=== PATIENT | female | born 1980 ===

== ENCOUNTER 2017-04-15 09:59 | Emergency (ER) | payer OTHER ==
[2017-04-15 10:06] VITALS: BP 117/59; PULSE 69; RESP 19; TEMP 98.2; O2SAT 99
--- NOTE | 2017-04-15 10:37 | ED PDOC ---
HPI: Female Pain Time Seen by Provider: 04/15/17 10:02 Chief Complaint (Provider): Vaginal Bleeding History Per: Patient History/Exam Limitations: no limitations Onset/Duration Of Symptoms: Days Current Symptoms Are (Timing): Still Present Severity: Mild Additional Complaint(s): Patient is a 36 year old female, who is currently with her second child , presents to the ED complaining of vaginal bleeding and discharge since yesterday. Patient reports 2 and para 1. Patient is 7 weeks and reports brown spotting yesterday and bright red vaginal bleeding today. Patient called [facility] and was advised to visit the ER. Patient has an appointment with [facility] next week. PMD: none Abnormal Vaginal Bleeding: Yes Past Medical History Reviewed: Historical Data, Nursing Documentation, Vital Signs Vital Signs: Last Vital Signs Temp 98.2 F 04/15/17 10:06 Pulse 69 04/15/17 10:06 Resp 19 04/15/17 10:06 BP 117/59 L 04/15/17 10:06 Pulse Ox 99 04/15/17 10:06 - Medical History PMH: No Chronic Diseases - Family History Family History: States: No Known Family Hx - Allergies Allergies/Adverse Reactions: Allergies Allergy/AdvReac Type Severity Reaction Status Date / Time No Known Allergies Allergy Verified 04/15/17 10:25 Review of Systems ROS Statement: Except As Marked, All Systems Reviewed And Found Negative Constitutional: Negative for: Fever Genitourinary Female: Positive for: Vaginal Discharge, Vaginal Bleeding Physical Exam - Reviewed Nursing Documentation Reviewed: Yes Vital Signs Reviewed: Yes - Physical Exam Appears: Positive for: Well, Non-toxic, No Acute Distress Head Exam: Positive for: ATRAUMATIC, NORMAL INSPECTION, NORMOCEPHALIC Skin: Positive for: Normal Color, Warm, DRY Eye Exam: Positive for: EOMI, Normal appearance, PERRL Neck: Positive for: Normal, Painless ROM Cardiovascular/Chest: Positive for: Regular Rate, Rhythm. Negative for: Gallop , Murmur Respiratory: Positive for: Normal Breath Sounds. Negative for: Accessory Muscle Use, Rhonchi, Respiratory Distress Gastrointestinal/Abdominal: Positive for: Normal Exam, Soft. Negative for: Tenderness Extremity: Positive for: Normal ROM Neurologic/Psych: Positive for: Alert, Oriented - Laboratory Results Result Diagrams: 04/15/17 10:55 04/15/17 10:55 - ECG O2 Sat by Pulse Oximetry: 99 (RA) Pulse Ox Interpretation: Normal Medical Decision Making Medical Decision Making: Time: 10:05 Impression: vaginal bleeding and discharge Plan: Blood Type and screen Beta-HCG CMP CBC PTT/PT Urine Culture UA US Transvaginal Scribe Attestation: Documented by Geovani Orr acting as a scribe for Faye Pandey PA-C. MD Scribe Attestation: All medical record entries made by the Scribe were at my direction and personally dictated by me. I have reviewed the chart and agree that the record accurately reflects my personal performance of the history, physical exam, medical decision making, and the department course for this patient. I have also personally directed, reviewed, and agree with the discharge instructions and disposition. Disposition - Clinical Impression Clinical Impression: Vaginal bleeding in - Patient ED Disposition Is Patient to be Admitted: No Counseled Patient/Family Regarding: Diagnosis, Need For Followup - Disposition Referrals: Sridhar Albarran MD [Staff Provider] - Disposition: Routine/Home Disposition Time: 13:42 Condition: GOOD Instructions: First Trimester Vaginal Bleed (ED) Forms: [facility] ED School/Work Excuse
[2017-04-15 11:00] LABS: RBC URINE 3 /hpf (0-3); URINE BACTERIA FEW (<OCC); URINE BILIRUBIN NEGATIVE (NEGATIVE); URINE BLOOD MODERATE (NEGATIVE); URINE COLOR STRAW (YELLOW); URINE GLUCOSE (UA) NEG (Normal); URINE KETONE NEGATIVE (NEGATIVE); URINE LEUKOCYTE ESTERASE MOD Leu/uL (Negative); URINE PROTEIN NEGATIVE (NEGATIVE); URINE UROBILINOGEN 0.2-1.0 mg/dL (0.2-1.0); WBC URINE 10 /hpf (0-5)
[2017-04-15 11:16] LABS: MEAN CELL VOLUME 88.1 fl (81.0-99.0); MEAN CORPUSCULAR HEMOGLOBIN 29.5 pg (27.0-31.0); MEAN CORPUSCULAR HGB CONC 33.5 g/dL (33.0-37.0); RED CELL DISTRIBUTION WIDTH 13.1 % (11.5-14.5); WHITE BLOOD COUNT 9.6 K/uL (4.8-10.8)
[2017-04-15 11:26] LABS: ALB/GLOB RATIO 1.5 (1.0-2.1); ALKALINE PHOSPHATASE 51 U/L (38-126); ALT/SGPT 35 U/L (9-52); AST/SGOT 19 U/L (14-36); BILIRUBIN,TOTAL 0.4 mg/dl (0.2-1.3); BLOOD UREA NITROGEN 13 mg/dl (7-17); CALCIUM 9.4 mg/dL (8.4-10.2); CARBON DIOXIDE 22 mmol/L (22-30); CHLORIDE 107 mmol/L (98-107); GFR AFRICAN-AMERICAN > 60; GLUCOSE,RANDOM 96 mg/dL (65-105); POTASSIUM 4.7 MMOL/L (3.6-5.0); SODIUM 140 mmol/l (132-148); TOTAL PROTEIN 7.3 G/DL (6.3-8.2)
[2017-04-15 11:45] LABS: PARTIAL THROMBOPLASTIN TIME 29.7 Seconds (25.6-37.1)
--- NOTE | 2017-04-15 18:54 | US ---
OB ultrasound dated 04/15/2017. History: Vaginal bleeding in a patient 7 weeks . Transvaginal sonographic evaluation of the pelvis performed. . Findings: The uterus is anteverted measuring approximately 11.0 x 7.4 x 6.2 cm. There appears be left-sided pelvic congestion There is a intrauterine fluid collection consistent with a gestational sac with peripheral decidual reaction. Measurements are as follows: Gestational sac: MSD = 0.91 cm = out of range Yolk sac: 0.19 pole: Questionable pole CRL = 0.24 cm = 5 weeks 5 days Heart motion: Heart rate not detected Average ultrasound age: 5 weeks 6 days +/-0 weeks 4 days ELBERT based on average ultrasound age = 0212/10/2017 No free fluid seen within the pelvis. Left ovary measures 4.0 x 2.2 x 2.6 cm and exhibits arterial flow. Measures 2.8 X 1.80 x 2.0 cm with what probably represents a complex corpus luteum cyst however recommend follow-up serial serum beta HCG and serial pelvic ultrasound to assess for development of normal intrauterine gestation and exclude the possibility of a concomitant ectopic . Right ovary exhibits arterial flow. Impression: Findings most likely represent very early intrauterine gestation however no heart rate detected at this time. There is also a complex appearing presumed right adnexal corpus luteum cyst. Recommend followup serial serum beta HCG and serial pelvic ultrasound to assess for development of viable intrauterine gestation and exclude the possibility of a concomitant ectopic . Note that this report was placed in [facility] review folder for followup.
== END 2017-04-15 13:56 | disposition home or self-care (01) ==
LOC: H.ER 09:59
DX: O20.9 Hemorrhage in early pregnancy, unspecified (principal); Z3A.01 Less than 8 weeks gestation of pregnancy